=== PATIENT | male | born 1955 | race Asian ===

== ENCOUNTER → 2018-05-18 | Outpatient (CLI) | payer OTHER | END | disposition home or self-care (01) | LOC: RAH 07:29 | PROVIDERS: ATTEND Internal Medicine | DX: M19.011 Primary osteoarthritis, right shoulder (principal); M75.101 Unspecified rotator cuff tear or rupture of right shoulder, not specified as traumatic; M25.711 Osteophyte, right shoulder | CPT/HCPCS: 73221 ==

== ENCOUNTER → 2018-05-31 | Outpatient (CLI) | payer OTHER | END | disposition home or self-care (01) | LOC: RAH 12:39 | PROVIDERS: ATTEND Internal Medicine | DX: Z01.818 Encounter for other preprocedural examination (principal); M75.101 Unspecified rotator cuff tear or rupture of right shoulder, not specified as traumatic | CPT/HCPCS: 71046 ==

== ENCOUNTER → 2024-07-18 | Outpatient (CLI) | payer MEDICARE ==
--- NOTE | 2024-07-18 12:54 | HMCIMG ---
FOOT COMP 3+VWS LT HISTORY: Left foot pain COMPARISON: None TECHNIQUE: 3 images of the left foot were obtained. FINDINGS: Following Degenerative changes are seen. IMPRESSION: 1. Findings as described above.
== END | disposition home or self-care (01) ==
LOC: RAH 12:02
PROVIDERS: ATTEND Internal Medicine
DX: M19.071 Primary osteoarthritis, right ankle and foot (principal); M79.672 Pain in left foot
CPT/HCPCS: 73630

== ENCOUNTER → 2024-10-21 | Outpatient (CLI) | payer OTHER ==
--- NOTE | 2024-10-22 07:43 | HMCIMG ---
EXAM: CT Cardiac calcium scoring. CLINICAL HISTORY: Screening. TECHNIQUE: Thin collimated axial CT cardiac images were obtained. A CT scan is done according to ALARA (As Low As Reasonably Achievable). CONTRAST: None. COMPARISON: None provided. FINDINGS: Calcium Score: VESSEL Number of lesions Volume mm3 Equi. Mass/mg Calcium score LM 2 64.1 - 85.6 LAD 2 70.8 - 104.4 LCX 1 110.8 - 121.7 RCA 1 11.4 - 12.1 Total 6 257.1 - 323.7 IMPRESSION: The total calcium score is 323.7. 68th percentile. /[place]
== END | disposition home or self-care (01) ==
LOC: RAH 13:54
PROVIDERS: ATTEND Internal Medicine
DX: Z13.6 Encounter for screening for cardiovascular disorders (principal)
CPT/HCPCS: 75571